=== PATIENT | female | born 1985 | race African-American/Black ===

== ENCOUNTER 2017-10-29 12:09 | Emergency (ER) | payer OTHER ==
[~2017-10-29] VITALS: Ht 152.4 cm; Wt 70.3 kg
[~2017-10-29 12:09] MED LIST: CIPRO500 MG PO; NAPROSYN500 MG PO; NICOTINE TRANSD14 M1 TD; NOHOMEMEDICATIONS; NORCO 5-325 TA1 EACH PO; PHENAZOPYRIDIN200 M2 PO; SENOKOT-S1 TA1 PO; TYLENOL325 MG PO; XANAX 0.25 MG0.25 MG PO
[2017-10-29] MEDS ORDERED: FLEXERIL PO (14:12)
[2017-10-29] MEDS ORDERED: MOBIC15 MG PO (14:12)
[2017-10-29 14:40] VITALS: BP 113/54
[2018-02-19] MEDS ORDERED: IBUPROFEN 200200 M1 PO (21:52)
[2018-02-19] MEDS ORDERED: NORCO 5-325 TA1 EACH PO (21:55)
== END 2017-10-29 14:41 | disposition home or self-care (01) ==
LOC: ER 12:09
DX: M25.511 Pain in right shoulder (principal); F17.210 Nicotine dependence, cigarettes, uncomplicated

== ENCOUNTER 2018-04-08 20:51 | Emergency (ER) | payer OTHER ==
[~2018-04-08] VITALS: Ht 152.4 cm; Wt 70.8 kg
[~2018-04-08 20:51] MED LIST changes: +FLEXERIL PO; +IBUPROFEN 200200 M1 PO; +MOBIC15 MG PO
[2018-04-08] MEDS ORDERED: IBUPROFEN 600600 M1 PO (21:23)
[2018-04-08] MEDS ORDERED: AMOXICILLIN500 M1 PO (21:23)
[2018-04-08] MEDS ORDERED: ULTRAM 50MG TAB50 MG PO (21:23)
== END 2018-04-08 23:05 | disposition home or self-care (01) ==
LOC: ER 20:51
DX: K04.7 Periapical abscess without sinus (principal); F17.210 Nicotine dependence, cigarettes, uncomplicated; Z90.5 Acquired absence of kidney